=== PATIENT | female | born 2000 ===

== ENCOUNTER 2025-04-02 09:57 | Day surgery (SDC) | payer OTHER, SELFPAY ==
[2025-03-25 13:08] VITALS: BMI 23.2
[2025-04-02] VITALS (9 sets, daily range): BP systolic 112–127; BP diastolic 57–70; PULSE 68–106; RESP 7–20; TEMP 36.2–36.3; O2SAT 99–100; BMI 23.2
--- NOTE | 2025-04-02 | PATH_ITS ---
[facility] Accession Number: [id number] No. of containers..01 Tissue . 01 Material submitted: . fallopian tube - LEFT ADNEXAL CYST, DISTAL FALLOPIAN TUBE . 01 Diagnosis: LEFT ADNEXAL CYST, DISTAL FALLOPIAN TUBE; CYSTECTOMY AND SALPINGECTOMY: Benign serous cystadenofibroma, 4.4 cm, please see microscopic description. Benign fallopian tube also present. Negative for malignancy. MRV 04/09/2025 1613 Local . 01 Electronically signed: . Enoch Graham MD, Pathologist NPI- [id number] . 01 Gross description: . Received in formalin with two identifiers and left adnexal cyst distal fallopian tube is a disrupted cystic structure, 4.4 x 3.8 x 1.4 cm, with attached presumed fallopian tube, 2.3 cm in length by 1.7 cm in diameter. Possible fimbriae are identified attached to the cystic structure. The external surface of the specimen is inked blue. The wall of the cyst ranging from 0.1 to 0.3 cm thick with a small area of pale stein excrescences identified 0.6 x 0.4 x 0.4 cm. The presumed portion of fallopian tube has a grossly dilated lumen with velvety mucosa. Inclusion Intern sections are submitted as follows: A1-A3: Cystic structure with all excrescences in A1. A4: Cross-section of presumed fallopian tube. ([id number]) . The remaining cystic structure is submitted in A5-A17. ([id number]) /MRV 04/08/2025 1807 Local . 01 Microscopic: . The entire cyst wall has been submitted for microscopic examination. The cyst is lined by serous-type epithelium, single and pseudostratified, with focal noncomplex papillary growth, without cytologic atypia or architectural complexity. There are background degenerative-type changes including hyalinizing stromal fibrosis, calcifications, and organizing hemorrhage. . Immunostains p53 and Ki67 are performed on block A2 with the following result: P53 is nonmutated/wild type, and the proliferation marker Ki67 is not increased. . These results along with the morphology support the diagnosis. . As part of ongoing supplier quality engineer, selected slides A2, A3, A5 and A8 are also reviewed by Dr. Tegan Price, who agrees with the interpretation. . * This test was developed and the performance characteristics were validated by [employer]. It has not been cleared or approved by the [place]. Food and Drug Administration. . 01 Pathologist provided ICD-10: N83.202 . 01 CPT . 279015, I32616, H31639 Specimen Comment: A courtesy copy of this report has been sent to [phone] Performed at: [address] [address], [place], [place] [id number] MD Sukh Beach MD Phone: [phone]
[2025-04-02] MEDS: LACTATED RINGERS 1,000 ML 84 ML IV ×2 (10:33→13:37)
--- NOTE | 2025-04-02 11:33 | PM.PREOP ---
Pre-operative Note COVID-19 COVID-19 status: Not tested Interval Note History & Physical reviewed/Exam performed by Physician: Yes Changes to H&P: No
--- NOTE | 2025-04-02 12:29 | SUR.OPER ---
Supine on padded OR bed, head on pillow, arms padded and tucked at sides, legs uncrossed, safety belt at thigh, tape over blanket over lower legs . All pressure points padded and covered.
--- NOTE | 2025-04-02 14:19 | P.OP_ITS ---
Operative Date/Time/Diagnoses Date of procedure: 04/02/25 Time of procedure: 12:25 Pre-op diagnosis: Left lower quadrant pain Left ovarian cyst Post-op diagnosis: other (Torsion, involving left adnexal cyst and fallopian tube, minimal pelvic endometriosis) Procedure & Clinicians Procedure: Procedures Operation Date: 04/02/25 11:15 Actual Procedure Side Surgeon p Robotic Assisted laparoscopic removal of Left ovary and partial left salpingectomy s Fulguration of pelvic peritoneal endometriosis Tad Courtney MD Indications: Eve is a 24-year-old nulligravida, LMP 02/22/2025 who presents in referral from Dr. Ivy Marvin with a 2 +month history of left lower quadrant pain and abdominal bloating. Patient did have a severe episode of pain about 3 days ago but now for the 1st time in about 2 months, she is no longer in pain. She does have slight discomfort and left lower quadrant but nothing like she has been experiencing unless 2 months. Radiographic findings over the last 2 months have included 2 ultrasounds performed at [facility]. The 1st ultrasound performed 12/22/2024 which was normal with the exception of the left ovary which measured 6.6 x 4.8 x 6.5 cm with a calculated ovarian volume of 110 cc. There was a large left adnexal cystic structure is seen which measures 5.9 x 5.5 x 4.1 cm which is predominantly anechoic. Less than 12 follicles are seen in each ovary and there was a small amount of fluid seen in the left adnexa. A 2nd ultra sound performed 2 days later was essentially unchanged. Patient was treated with 14 days of Vibramycin empirically for the possibility of tubo- ovarian abscess related to pelvic inflammatory disease but that did not affect the pain or abdominal bloating. The patient clearly has some sort of adnexal pathology on the left side which is easily correlate well with the pain she has been having over the last couple of months. Complicating matters however is the fact that her pain over the last couple of days has gone away completely. This raises the possibility of the cystic structure in the left adnexa resolving itself spontaneously and without continued symptoms attributable to an abnormality in the left lower quadrant, surgery at this point would not be indicated without higher furcation as to whether not the sonographic abnormalities in the left adnexa have resolved or are persistent but are less symptomatic. A follow-up pelvic ultrasound at [facility] was performed 03/16/2025 and compared with the ultrasound last performed 01/19/2025. The uterus is seem to be anteverted and normal in size with a homogeneous myometrium. The right ovary measures 3.1 x 1.3 x 1.7 cm with a calculated ovarian volume of 3.5 cc. The left ovary however measures 5.6 x 3.6 x 3.4 cm with a calculated ovarian volume of 36.3 cc. There is an anechoic left ovarian cyst seen measuring 4.2 x 3.3 x 4.1 cm. An adjacent tubular anechoic structure measuring up to 5.8 cm adjacent to the left ovary is also noted. There is no abnormal fluid collections in either the pelvis or the abdomen. Following discussions with the patient, she desires to proceed with robotically assisted laparoscopic left ovarian cystectomy with possible left salpingo-oophorectomy. At the same time, the tubular cystic structure will also be evaluated and removed as appropriate. She presents today for her scheduled surgery. Surgeon: Tad Courtney Anesthesia Type: General Operative Notes Findings: The left ovary is enlarged to approximately 5 cm, is cyanotic in appearance, and there is breakdown of the ovarian capsule. The ovary itself is torsed with the infundibulopelvic ligament also wrapped around the distal half of the left fallopian to. It too is cyanotic and beginning to show signs of necrosis. The uterus itself is normal in size and shape. The right adnexa is normal in appearance. There were no abnormalities in the anterior cul-de-sac but there are 3 or 4 very small superficial endometriotic implants in the posterior cul-de-sac primarily on the left. The appendix is normal in appearance and the remainder of the abdomen/pelvis are normal to laparoscopic evaluation. Closure Type: primary Specimen(s): left tube (Portion) and other (Left ovary) Applied: none Estimated blood loss (mL): 25 Blood products transfused: none Procedure in detail: With the patient under satisfactory general anesthesia in the modified dorsal lithotomy position, the perineum, vagina, and abdomen were prepped and draped in the usual manner for total laparoscopic hysterectomy with robotic assist.? A pre-surgical safety time-out was then taken in accordance with [facility] Main OR protocols.? A bivalve speculum was then placed in the vagina and the cervix visualized.? The anterior lip of the cervix was then grasped with single- tooth tenaculum and the endocervical canal dilated to 6 mm with Hegar dilators.? A Zumi manipulator was placed within the endometrial cavity and preparations for laparoscopy were initiated.? An 8 mm transverse incision was then made above the umbilicus after infiltration with 0.5% Marcaine with epinephrine.? A varies needle was then used to insufflate the abdominal cavity and once properly in sufflated, an 8 mm trocar and sleeve were introduced through the incision into the abdominal cavity.? Correct placement of the sleeve in the abdominal cavity was confirmed with a 5 mm scope.? Two additional 8 mm trocars and sleeves were then placed laterally on the patient's right side using a similar technique, and 1 additional 8 mm trocar was then placed laterally on the patient's left side. ?The patient was then placed in 27 degree Trendelenburg position. ?The robot was brought in and positioned on the patient's left side. ?The robotic scope was then placed through the 8 mm #2 Port and aimed at the uterus as the focal point of surgery.? A vessel sealer, fenestrated bipolar grasper, and laparoscopic scissors were then placed in the 3 remaining ports.? The pelvis was carefully inspected with the findings as noted above.? Attention was then turned to the left adnexa with the distal tube grasped with the fenestrated bipolar grasper. ?The torsion was reduced and a period of time given to see whether bleeding from the ovary could be seen. Even after several minutes there was absolutely no evidence of flow to the ovary and the decision was made to remove the left ovary in toto. Accordingly the vessel sealer was used to coagulate and divide the left infundibulopelvic ligament all the way across the mesosalpinx to the level of the cornua which was then coagulated and divided with the vessel sealer. The specimen was then set aside for subsequent retrieval. Careful evaluation of the fallopian tube on the left side showed no change in cyanosis or evidence of bleeding from the distal tube therefore the decision was made to take also the distal most portion of the fallopian tube which was cyanotic and showed signs of early necrosis. The vessel sealer was then used to coagulate and divide the distal fallopian tube leaving the proximal remnant. Hemostasis was excellent. The specimens were then retrieved using a 10 mm Endo-Catch bag. Specimens were brought out through the right lower quadrant port and submitted as an aggregate pathologic specimen. The pelvis was carefully inspected and irrigated. There was absolutely no evidence of bleeding. The superficial areas of peritoneal endometriosis were then carefully visualized and with judicious use of monopolar cautery, were destroyed. There were no other abnormalities or scarring in the pelvis. The remainder of the abdomen and pelvis was again carefully inspected, the pneumoperitoneum was vented, and the robot undocked. The trocars were then all removed and the skin incisions closed with 4-0 Monocryl using inverted interrupted stitches. Appropriate dressings were applied. Reflection. The bladder flap was then completed using the vessel sealer and the bladder further advanced beyond the level of the colpotomy cup.? The patient was awakened from anesthesia.? She was then transferred to the PACU for a period of observation and recovery after having tolerated the procedure well. Complications: none Post-operative Condition: stable Disposition: PACU Plan for aftercare: Routine PACU care with transfer to acute care for a period of recovery prior to discharge.
[2025-04-02] MEDS: KETOROLAC 30 MG/ML VIAL 15 MG IV (14:34)
== END 2025-04-02 15:15 | disposition home or self-care (01) ==
PROVIDERS: Referring Provider Obstetrics & Gynecology; Visit Provider Obstetrics & Gynecology
PROC: (CPT 58662; principal; 2025-04-02 11:15)
DX: N80.8 Other endometriosis (principal); N83.53 Torsion of ovary, ovarian pedicle and fallopian tube; N83.292 Other ovarian cyst, left side; N80.321 Superficial endometriosis of the posterior cul-de-sac
CPT/HCPCS: 58662; 58661; S2900; J1100; J1885; J2405; J2704; J3010; J3490